=== PATIENT | female | born 1935 | race Caucasian/White ===

== ENCOUNTER 2020-12-12 10:17 | Observation (INO) | payer MEDICARE ==
[~2020-12-12] VITALS: Ht 157.5 cm; Wt 54.9 kg
[~2020-12-12 10:17] MED LIST: LOPRESSOR 25 MG25 MG PO
[2020-12-12 12:29] LABS: HEMOGLOBIN 15.9 gm/dl (12.3-15.3); RED BLOOD COUNT 4.98 M/UL (4.00-5.10); WHITE BLOOD COUNT 13.3 K/UL (4.5-11.0)
[2020-12-12 13:08] LABS: BUN/CREATININE RATIO 20 (0-10)
[2020-12-12] MEDS ORDERED: MATZIM LA240 MG PO (19:01)
[2020-12-12] MEDS ORDERED: WARFARIN SODIUM2 MG PO (19:02)
[2020-12-12] MEDS ORDERED: WARFARIN SODIUM3 MG PO (19:02)
[2020-12-12] MEDS ORDERED: LOPRESSOR 50 MG50 MG PO (19:04)
[2020-12-12] MEDS ORDERED: MECLIZINE HCL25 MG PO (19:04)
[2020-12-12] MEDS ORDERED: TRANDOLAPRIL4 MG PO (19:05)
[2020-12-13 04:06] LABS: HEMOGLOBIN 15.7 gm/dl (12.3-15.3); RED BLOOD COUNT 5.07 M/UL (4.00-5.10); WHITE BLOOD COUNT 12.4 K/UL (4.5-11.0)
[2020-12-13 04:52] LABS: BUN/CREATININE RATIO 16 (0-10)
[2020-12-14] MEDS ORDERED: PERCOCET 5/325 T1 EA PO (14:08)
== END 2020-12-14 17:25 | disposition home or self-care (01) ==
LOC: ER1 10:17 → M/S 15:53 → CDU 15:53 → M/S 15:53
PROVIDERS: Physician Assistant Medical; ADMIT Internal Medicine
DX: S22.41XA Multiple fractures of ribs, right side, initial encounter for closed fracture (principal); S82.002A Unspecified fracture of left patella, initial encounter for closed fracture; M25.462 Effusion, left knee; D72.829 Elevated white blood cell count, unspecified; I65.22 Occlusion and stenosis of left carotid artery; I10 Essential (primary) hypertension; I48.20 Chronic atrial fibrillation, unspecified; F17.210 Nicotine dependence, cigarettes, uncomplicated; I25.10 Atherosclerotic heart disease of native coronary artery without angina pectoris; E78.5 Hyperlipidemia, unspecified; Z20.822 Contact with and (suspected) exposure to COVID-19; Z95.0 Presence of cardiac pacemaker; Z79.01 Long term (current) use of anticoagulants; Z79.899 Other long term (current) drug therapy; Z95.820 Peripheral vascular angioplasty status with implants and grafts; Z95.5 Presence of coronary angioplasty implant and graft; Z90.710 Acquired absence of both cervix and uterus; Z90.49 Acquired absence of other specified parts of digestive tract; W19.XXXA Unspecified fall, initial encounter
CPT/HCPCS: ECHO; 36415; 70450; 70496; 70498; 71101; 73560; 73562; 80048; 80053; 81001; 82550; 82553; 83735; 83874; 84484; 85025; 85027; 85610; 93005; 93306; 99284; G0378; Q9967; U0002